=== PATIENT | female | born 1970 | race Two or more races ===

== ENCOUNTER 2018-02-05 21:27 | Emergency (ER) | payer MEDICAID ==
[~2018-02-05] VITALS: Ht 162.6 cm; Wt 81.6 kg
[2018-02-05 21:49] VITALS: BP 137/88
[2018-02-05] MEDS ORDERED: BACLOFEN 10 MG TAB PO ONE (22:30)
[2018-02-05] MEDS ORDERED: IBUPROFEN 600 MG TAB PO ONE (22:30)
== END 2018-02-05 23:12 | disposition home or self-care (01) ==
LOC: EDBD 21:27 → ER 21:34
DX: S22.43XA Multiple fractures of ribs, bilateral, initial encounter for closed fracture (principal); M54.5 Low back pain; M54.2 Cervicalgia; R09.82 Postnasal drip; E11.9 Type 2 diabetes mellitus without complications; V43.52XA Car driver injured in collision with other type car in traffic accident, initial encounter; Y93.89 Activity, other specified; Y92.9 Unspecified place or not applicable; Y99.8 Other external cause status
CPT/HCPCS: 71045; 71250; 72100

== ENCOUNTER 2021-04-29 14:51 | Emergency (ER) | payer MEDICAID ==
[~2021-04-29] VITALS: Ht 165.1 cm; Wt 81.6 kg
[2021-04-29 15:27] LABS: Urine Bacteria NONE SEEN /hpf (None Seen); Urine Blood 2+ /uL (Negative); Urine Mucus FEW (None Seen); Urine WBC 240 /hpf (0 - 5)
[2021-04-29] MEDS ORDERED: ACET-1158 PO (17:10)
[2021-04-29] MEDS ORDERED: SULF800T7 PO (17:10)
[2021-04-29] MEDS ORDERED: cefTRIAXone SOD 1,000 MG VL IM ONE (17:15)
[2021-04-29 17:56] VITALS: BP 113/67
== END 2021-04-29 18:15 | disposition home or self-care (01) ==
LOC: ER 14:51
DX: N39.0 Urinary tract infection, site not specified (principal); E11.9 Type 2 diabetes mellitus without complications
CPT/HCPCS: 81001; 96372; 99283; J0696

== ENCOUNTER 2022-05-08 17:11 | Emergency (ER) | payer MEDICAID ==
[~2022-05-08] VITALS: Ht 165.1 cm; Wt 71.3 kg
[~2022-05-08 17:11] MED LIST: ACET-1158 PO; SULF800T7 PO
[2022-05-08 18:11] LABS: Basophils # (auto) 0.1 10 ^3/uL (0-0.2); Basophils % (auto) 0.6 % (0.0-2.0); Eosinophils # (auto) 0.2 10 ^3/uL (0-0.8); Eosinophils % (auto) 2.2 % (0.0-7.0); Hematocrit 46.1 % (36.0-46.0); Hemoglobin 15.4 g/dL (12.2-16.2); Lymphocytes # (auto) 3.1 10 ^3/uL (0.4-5.4); Lymphocytes % (auto) 29.9 % (10.0-50.0); Mean Corpuscular Hemoglobin 29.5 pg (28.0-32.0); Mean Corpuscular Hgb Conc. 33.3 g/dL (32.0-36.0); Mean Corpuscular Volume 88.4 fL (80.0-100.0); Monocytes # (auto) 0.6 10 ^3/uL (0-1.3); Monocytes % (auto) 5.8 % (0.0-12.0); Neutrophils # (auto) 6.4 10 ^3/uL (1.6-8.6); Neutrophils % (auto) 61.5 % (37.0-80.0); Nucleated Red Blood Cells % 0.1 %; Red Blood Cells 5.22 10^6/uL (4.0-5.20); Red Cell Distribution Width 12.7 % (11.8-14.3); White Blood Cell 10.4 10^3/uL (4.4-10.8)
[2022-05-08 18:27] LABS: Albumin 3.9 g/dL (3.4-5.0); BUN/Creatinine Ratio 16.9; Calcium 9.7 mg/dL (8.5-10.1); Potassium 5.3 mmol/L (3.5-5.1)
[2022-05-08 18:30] LABS: Bilirubin, Total 0.3 mg/dL (0.2-1.0); Total Protein 7.3 g/dL (6.4-8.2)
[2022-05-08 18:53] LABS: Urine Bacteria NONE SEEN /hpf (None Seen); Urine Blood Negative /uL (Negative); Urine Mucus FEW (None Seen); Urine Specific Gravity 1.027 (1.001-1.035); Urine WBC 2 /hpf (0 - 5)
[2022-05-08] MEDS ORDERED: DICL-163 PO (21:57)
[2022-05-08] MEDS ORDERED: KETOROLAC TROMETH 30 MG/ML 1ML VIAL IM ONE (22:00)
[2022-05-08 22:32] VITALS: BP 115/74
== END 2022-05-08 22:44 | disposition home or self-care (01) ==
LOC: ER 17:11
DX: R10.32 Left lower quadrant pain (principal); E11.9 Type 2 diabetes mellitus without complications; Z88.2 Allergy status to sulfonamides
CPT/HCPCS: 36415; 74176; 80053; 81001; 83605; 83690; 83880; 84484; 85025; 93005; 96372; 99285; J1885

== ENCOUNTER 2024-02-28 16:36 | Emergency (ER) | payer MEDICAID ==
[~2024-02-28] VITALS: Ht 160 cm; Wt 70.3 kg
[~2024-02-28 16:36] MED LIST changes: -ACET-1158 PO; +ACET500T58 PO; +DICL50TA5 PO; +SULF800T23 PO; -SULF800T7 PO
[2024-02-28 17:21] VITALS: BP 155/83; PULSE 106; RESP 18; TEMP 96.3; O2SAT 97
--- NOTE | 2024-02-28 17:27 | ED.PDOC ---
Yaniv. trauma (HPI) HPI Comments PT REFUSED CT HEAD Chief Complaint: Fall Injury Comments A 53 YEAR OLD FEMALE PRESENTS TO THE ED WITH CHIEF COMPLAINT OF FALL YESTERDAY. PATIENT REPORTS THAT HER LEFT KNEE GAVE UP, CAUSING HER TO FALL BACKWARDS, INJURING HER LEFT ANKLE AND TAILBONE. PER PT, SHE HIT HER LOWER BACK AND LEFT ANKLE FIRST AND THEN HIT HER RIGHT SIDE HEAD BUT SHE DID NOT LOSE CONSCIOUSNESS AND DENIES HAVING A CT HEAD PERFORMED AT THIS TIME. PT C/O NECK PAIN, TAILBONE PAIN AND LEFT ANKLE PAIN AT THIS TIME. PATIENT DENIES HEADACHE, N/V, CHEST PAIN, DIZZINESS, SOB, OR LOC. PT IS ALERT, ORIENTATION X4 WITH NORMAL GAIT. NO OTHER SYMPTOMS REPORTED AT THIS TIME OF CARE. Time Seen by MD: 17:21 Primary Care Provider: IVELISSE Whitley notes: Nurses Notes, Medications, Allergies Allergies: Coded Allergies: NO KNOWN ALLERGIES (Verified , 02/05/18) Home Meds Active Scripts Diclofenac Sodium (Diclofenac Sodium Dr) 50 Mg Tab, 50 MG PO TID PRN, #30 TAB Prov:NY GODFREY 05/08/22 Sulfamethoxazole W/Trimethopri (Trimethoprim/Sulfamethoxa) 1 Tab Tab, 1 TAB PO BID for 7 Days, #14 TAB 0 Refills Prov:TRUPTI LEWIS 04/29/21 Acetaminophen (Acetaminophen) 500 Mg Tab, 500 MG PO QIDP, #30 TAB 0 Refills Prov:TRUPTI LEWIS 04/29/21 Information Source: Patient Mode of Arrival: Ambulatory Severity: Moderate Timing: Days Duration: Since onset Prehospital treatment: None Location: (L) Ankle, Other (TAILBONE) Location of laceration: None Mechanism: Fall Associated signs and symtoms: None Past Medical History PAST MEDICAL HISTORY: DM Past Medical History (Other): CHRONIC NECK PAIN Surgical History: Denies all surgeries [employer] History: No Pertinent [employer] History Family History Family History: Reviewed,noncontributory to illness, Unknown Social History Smoker: Non-Smoker Alcohol: Denies ETOH Use Drugs: Denies Drug Use Lives In: Home Constitutional: denies: chills, diaphoresis, fatigue, fever, malaise, sweats, weakness, others EENTM: denies: blurred vision, double vision, ear bleeding, ear discharge, ear drainage, ear pain, ear ringing, eye pain, eye redness, hearing loss, mouth pain, mouth swelling, nasal discharge, nose bleeding, nose congestion, nose pain, photophobia, tearing, throat pain, throat swelling, voice changes, others Respiratory: denies: cough, hemoptysis, orthopnea, SOB at rest, shortness of breath, SOB with excertion, stridor, wheezing, others Cardiovascular: denies: chest pain, dizzy spells, diaphoresis, Dyspnea on exertion, edema, irregular heart beat, left arm pain, lightheadedness, palpitations, PND, syncope, others Gastrointestinal: denies: abdomen distended, abdominal pain, blood streaked bowels, constipated, diarrhea, dysphagia, difficulty swallowing, hematemesis, melena, nausea, poor appetite, poor fluid intake, rectal bleeding, rectal pain, vomiting, others Genitourinary: denies: abnormal vagina bleeding, burning, dyspareunia, dysuria, flank pain, frequency, hematuria, incontinence, pain, , vagina discharge, urgency, others Neurological: denies: dizziness, fainting, headache, left sided numbness, left sided weakness, numbness, paresthesia, pre-existing deficit, right sided numbness, right sided weakness, seizure, speech problems, tingling, tremors, weakness, others Musculoskeletal: reports: joint pain, joint swelling, muscle pain, others (TAILBONE PAIN, LEFT ANKLE PAIN); denies: back pain, gout, muscle stiffness, ne ck pain Integumetry: reports: bruises (LEFT ANKLE ); denies: change in color, change in hair/nails, dryness, laceration, lesions, lumps, rash, wounds, others Allergic/Immunocompromised: denies: Difficulty Healing, Frequent Infections, Hives, Itching, others Hematologic/Lymphatic: denies: anemia, blood clots, easy bleeding, easy bruising, swollen glands, others Endocrine: denies: excessive hunger, excessive sweating, excessive thirst, excessive urination, flushing, intolerance to cold, intolerance to heat, unexplained weight gain, unexplained weight loss, others Psychiatric: denies: anxiety, bipolar disorder, depression, hopeless, panic disorder, schizophrenia, sleepless, suicidal, others All Other Systems: Reviewed and Negative Physical Exam General Appearance: No Apparent Distress, Normal HEENT: Head (NO CONTUSIONS AND HEMATOMAS ON SCALP, NO DEFORMITY. NO EVIDENCE OF HEAD INJURY. ), Normal ENT Inspection, PERRL/EOMI Neck: Full Range of Motion, Normal Inspection, Supple, Tender Lateral (TENDERNESS AND MUSCLE SPASM ON POSTERIOR NECK, NO BONY TENDERNESS, SWELLING AND DEFORMITY. ) Respiratory: Chest Non-Tender, Lungs Clear, No Accessory Muscle Use, No Respiratory Distress, Normal Breath Sounds Cardiovascular: No Edema, No JVD, No Murmur, No Gallop, Normal Peripheral Pulses, Regular Rate/Rhythm Breast Exam: Deferred Gastrointestinal: No Organomegaly, Non Tender, No Pulsatile Mass, Normal Bowel Sounds, Soft Genitalia: Deferred Pelvic: Deferred Rectal: Deferred Extremities: No calf tenderness, Normal capillary refill, Normal range of motion, No pedal edema, Tender (SWELLING AND CONTUSION ON LEFT LATERAL ANKLE, NO BONY TENDERNESS AND DEFORMITY. ) Musculoskeletal : Location: Bilateral Extremity Location: Back Apperance: Tenderness: Moderate (TENDERNESS TAILBONE REGION, NO BONY TENDERNESS, SWELLING AND DEFORMITY. 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 ), Dry, Normal Color, Warm Peripheral Pulses: 2+ carotid (R), 2+ carotid (L) Lymphatic: No Adenopathy Was a procedure done? Was a procedure done?: No Differential Diagnosis Multiple Trauma: Fractures, Spine Injury, Abrasions, Contusion X-Ray, Labs, Meds, VS Vital Signs Date Time Temp Pulse Resp B/P (MAP) Pulse Ox O2 Delivery O2 Flow Rate FiO2 02/28/24 17:21 96.3 106 18 155/83 (107) 97 96.3 02/28/24 17:21 106 18 97 Room Air 02/28/24 17:06 96.3 106 18 155/83 (107) 97 Current Medications Medications (Trade) Dose Ordered Sig/Jona Route Start Time Stop Time Status Last Admin Acetaminophen/ Hydrocodone Bitart ([place] 5/325MG Tab) 1 tab ONCE ONCE PO 02/28/24 17:30 02/28/24 17:31 DC 02/28/24 17:30 X-Ray, Labs, Meds, VS Comment EXTERNAL MEDICAL RECORDS REVIEWED: [NONE] INDEPENDENT HISTORIANS: [NONE] SOCIAL DETERMINANTS OF HEALTH: [NONE] LABS ORDERED: NONE REVIEWED AND INTERPRETED RESULTS: LEFT ANKLE XR: INTERPRETED BY ME. NO ACUTE FINDINGS. NO FRACTURES OR DIS LOCATION. PENDING RADIOLOGIST REPORT. COCCYX XR: INTERPRETED BY ME. NO ACUTE FINDINGS. NO FRACTURES OR DISLOCATION. PENDING RADIOLOGIST REPORT. C-SPINE XR: INTERPRETED BY ME. NO ACUTE FINDINGS. NO FRACTURES OR DISLOCATION. DEGENERATIVE CHANGES NOTED FROM C5-C7. PENDING RADIOLOGIST REPORT. IMAGING ORDERED: LEFT ANKLE XR, COCCYX XR, C-SPINE XR TREATMENTS ORDERED: [place] 5/325MG PO PROCEDURES PERFORMED: NONE CRITICAL CARE TIME: NONE GIVEN THE HISTORY AND PRESENT ILLNESS OF THE PATIENT, AFTER REVIEWING LABS, IMAGING, AND COURSE OF TREATMENT ADMINISTERED DURING THEIR ED VISIT, THERE IS LOW SUSPICION FOR RED FLAG FINDINGS. BASED ON HISTORY OF PRESENT ILLNESS, AND PHYSICAL EXAM, PATIENT WILL BE DISCHARGED HOME. DISCUSSED PLAN FOR DISCHARGE HOME WITH RX []. MEDICATION WARNINGS GIVEN. SHARED DECISION MAKING: DISCUSSED WITH PATIENT THAT THEIR WORKUP WAS NORMAL. PATIENT INSTRUCTED TO FOLLOW UP WITH PRIMARY CARE PROVIDER IN 1-2 DAYS FOR RE- EVALUATION OF SYMPTOMS. PATIENT VERBALIZES UNDERSTANDING TO RETURN TO ED FOR NEW OR WORSENING SYMPTOMS OR IF FOLLOW UP WITH PCP CANNOT BE OBTAINED. PATIENT FEELS COMFORTABLE GOING HOME AT THIS TIME. ALL QUESTIONS ADDRESSED AT TIME OF DISCHARGE. Time of 1ST Reevaluation: 18:21 Reevaluation 1ST: Unchanged Patient Education/Counseling: Diagnosis, Treatment Family Education/Counseling: Diagnosis, Treatment Departure 1 Departure Time of Disposition: 18:20 Impression: Primary Impression: Cervical muscle strain Qualified Codes: S16.1XXA - Strain of muscle, fascia and tendon at neck level, initial encounter Additional Impressions: Strain of muscle, fascia and tendon of lower back, initial encounter Contusion of left ankle Qualified Codes: S90.02XA - Contusion of left ankle, initial encounter Disposition: HOME / SELF CARE / HOMELESS Condition: Stable Additional Instructions: FOLLOW-UP WITH PCP IN 1 TO 2 DAYS. TAKE MEDICATIONS PRESCRIBED. RETURN TO ED FOR ANY NEW OR WORSENING SYMPTOMS. e-Prescriptions Prednisone (Prednisone) 20 Mg Tab 40 MG PO DAILY, #20 TAB Prov: JANY REDDING 02/28/24 Tramadol HCl (Tramadol HCl) 50 Mg Tab 50 MG PO BID, #20 TAB Prov: JANY REDDING 02/28/24 Discharged With: Self, Relative Critical Care Note Critical Care Time?: No Stability Stability form required: No Heart Score Heart Score: Heart Score Response (Comments) Value History N/A 0 EKG N/A 0 Age N/A 0 Risk Factors N/A 0 Troponin N/A 0 Total 0 I personally scribed for JANY REDDING ([email or web address]) on 02/28/24 at 17:26. Electronically submitted by Tate Mcdonnell ([email or web address]). I personally scribed for JANY REDDNIG ([email or web address]) on 02/28/24 at 18:02. Electronically submitted by Tate Mcdonnell ([email or web address]). JANY REDDING Feb 28, 2024 17:26
[2024-02-28] MEDS: HYDROcodone-ACET 5/325MG TAB PO ONE (17:30)
--- NOTE | 2024-02-28 18:09 | DVH ---
CLINICAL INDICATION: FALL TECHNIQUE: 1 radiographic views of the cervical spine were obtained. Comparison: None FINDINGS/IMPRESSION: There is no evidence of acute fracture or dislocation. The visualized joint space is well maintained. There is reversal of the normal cervical lordotic curve apex is at C5-6 and 7. Bony spondylosis and d egenerative disc changes appear worse at C6-7. There is no radiopaque foreign body. HS:Y
[2024-02-28] MEDS ORDERED: TRAM-626 PO (18:13)
--- NOTE | 2024-02-28 18:13 | DVH ---
XY SACRUM AND COCCYX HISTORY: FALL TECHNICAL DATA: Frontal, Batista and lateral views were obtained of the sacrum and coccyx. COMPARISON: None FINDINGS: No fracture or focal abnormality is demonstrated involving the sacrum. The sacral neural foramina freddie ear symmetric. There is no distraction or displacement of the coccygeal segments. The sacroiliac join ts appear normal. IMPRESSION: 1. No acute fracture seen. Normal radiographs of the sacrum and coccyx. HS:Y
[2024-02-28] MEDS ORDERED: PRED20TA2 PO (18:16)
--- NOTE | 2024-02-28 18:16 | DVH ---
XY L ANKLE 3 VIEW, INDICATION: FALL TECHNICAL DATA:Frontal , oblique and lateral views were obtained of the left ankle. COMPARISON: None FINDINGS: No fracture is identified. Joint spaces are maintained. Alignment is anatomic. Mild soft tissue rosales a centered around the lateral malleolus. IMPRESSION: No acute fracture or dislocation of the left ankle.
== END 2024-02-28 18:46 | disposition home or self-care (01) ==
LOC: ER 16:42
DX: S16.1XXA Strain of muscle, fascia and tendon at neck level, initial encounter (principal); S39.012A Strain of muscle, fascia and tendon of lower back, initial encounter; S90.02XA Contusion of left ankle, initial encounter; E11.9 Type 2 diabetes mellitus without complications; Z79.899 Other long term (current) drug therapy; W18.39XA Other fall on same level, initial encounter; Y93.89 Activity, other specified; Y92.89 Other specified places as the place of occurrence of the external cause; Y99.8 Other external cause status
CPT/HCPCS: 72040; 72220; 73610